=== PATIENT | male | born 1995 | race American Indian/Alaskan Native ===

== ENCOUNTER 2019-11-03 00:17 | Emergency (ER) | payer SELFPAY ==
--- NOTE | 2019-11-03 01:03 | Emergency Department Report ---
ED Eye Problem HPI - General Chief complaint: Eye Problems Stated complaint: EYE INJURY FROM WORK Time Seen by Provider: 11/03/19 00:54 Source: patient Mode of arrival: Wheelchair Limitations: Other - History of Present Illness Initial comments: Patient is a 24-year-old male that presents emergency room with bilateral eye pain. 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 Patient states he was able to drive home and he took an hour nap to see if he will get better and states that it is actually worsening. Patient states he is light sensitive and he is having severe irritation and burning in his eyes. Patient states the pain is a 10 out of 10. Patient states his tetanus is within 5 years. MD chief complaint: eye pain, eye injury, other -: Sudden Onset Description: sudden Location: both eyes Place: work If Injury: UV exposure, other Eye Symptoms: burning, redness, pain, decreased vision, photophobia Severity: severe Severity scale (0 -10): 10 If Pain, Quality: stabbing Consistency: constant Associated Symptoms: none Treatments Prior to Arrival: none - Related Data Patient Tetanus UTD: Yes Allergies Allergy/AdvReac Type Severity Reaction Status Date / Time No Known Allergies Allergy Verified 11/03/19 00:26 ED Review of Systems ROS: Stated complaint: EYE INJURY FROM WORK Other details as noted in HPI Constitutional: denies: chills, fever Eyes: as per HPI, eye pain ENT: denies: ear pain, throat pain Respiratory: denies: cough, shortness of breath, wheezing Cardiovascular: denies: chest pain, palpitations Endocrine: no symptoms reported Gastrointestinal: denies: abdominal pain, nausea, diarrhea Genitourinary: denies: urgency, dysuria Musculoskeletal: denies: back pain, joint swelling, arthralgia Skin: denies: rash, lesions Neurological: denies: headache, weakness, paresthesias Psychiatric: denies: anxiety, depression Hematological/Lymphatic: denies: easy bleeding, easy bruising ED Past Medical Hx - Past Medical History Previous Medical History?: No - Surgical History Past Surgical History?: Yes Additional Surgical History: right lower leg - Family History Family history: no significant - Social History Smoking Status: Never Smoker Substance Use Type: None ED Physical Exam - General Limitations: Other General appearance: alert, in no apparent distress - Head Head exam: Present: atraumatic, normocephalic - Eye Eye exam: Present: conjunctival injection, periorbital swelling, periorbital tenderness - ENT ENT exam: Present: mucous membranes moist - Neck Neck exam: Present: normal inspection - Respiratory Respiratory exam: Present: normal lung sounds bilaterally. Absent: respiratory distress, wheezes, rales - Cardiovascular Cardiovascular Exam: Present: regular rate, normal rhythm. Absent: systolic murmur, diastolic murmur, rubs, gallop - GI/Abdominal GI/Abdominal exam: Present: soft, normal bowel sounds. Absent: distended, tenderness, guarding - Rectal Rectal exam: Present: deferred - Extremities Exam Extremities exam: Present: normal inspection - Back Exam Back exam: Present: normal inspection - Neurological Exam Neurological exam: Present: alert, oriented X3 - Psychiatric Psychiatric exam: Present: normal affect, normal mood - Skin Skin exam: Present: warm, dry, intact, normal color. Absent: rash ED Course Vital Signs 11/03/19 11/03/19 00:22 02:03 Temperature 98.4 F Pulse Rate 59 L 59 L Respiratory 18 15 Rate Blood Pressure 117/71 Blood Pressure 109/78 [left arm] O2 Sat by Pulse 100 100 Oximetry - Reevaluation(s) Reevaluation #1: I discussed plan of care with patient. Patient agrees with plan of care and transfer. Patient will be transferred to [place] via EMS. Patient's labs have been sent. Patient's eyes will be flushed with normal saline 11/03/19 01:15 - Consultations Consultation #1: [place] [facility] paged 11/03/19 01:03 I discussed case with Dr. Franklin at [place] [facility] and Dr. Franklin has accepted the patient to be transferred. 11/03/19 01:14 ED Medical Decision Making - Lab Data Result diagrams: 11/03/19 01:15 11/03/19 01:15 - Medical Decision Making Patient is a 24-year-old male that presents emergency room with complaints of bilateral eye pain. Patient had Riley go towards his eye while his work with electricity today. Patient unable to open his eyes due to pain. Patient states his having photophobia. Patient eyes were flushed which improved his symptoms. Patient was transferred to [facility] since his khalil involve his eyes. Patient was given Ancef prophylactically and patient was up-to-date on his tetanus. Patient had labs done which were unremarkable. Patient transferred to [facility] via EMS. - Differential Diagnosis Eye pain, electrical burn to eyes, burning eyes, eye irritation Critical Care Time: Yes Critical care time in (mins) excluding proc time.: 35 Critical care attestation.: If time is entered above; I have spent that time in minutes in the direct care of this critically ill patient, excluding procedure time. Critical Care Time: 35 minutes ED Disposition Clinical Impression: Burn of eye Qualifiers: Encounter type: initial encounter Laterality: right Qualified Code(s): T26.41XA - Burn of right eye and adnexa, part unspecified, initial encounter Eye pain Qualifiers: Laterality: bilateral Qualified Code(s): H57.13 - Ocular pain, bilateral Disposition: [id number]/TX-[id number] ANOTHER TYPE HLTHCARE Is pt being admited?: No Does the pt Need Aspirin: No Condition: Critical Time of Disposition: 01:16
[2019-11-03] MEDS ORDERED: SODIUM CHLORIDE 0.9% 1000 ML 1,000 ML ONE (01:18)
[2019-11-03 01:35] LABS: Hematocrit 40.7 % (35.5-45.6); Hemoglobin 13.9 gm/dl (11.8-15.2); Mean Corpuscular HGB Conc 34 % (32-34); Mean Corpuscular Volume 81 fl (84-94); Red Cell Distribution Width 13.6 % (13.2-15.2)
[2019-11-03 01:57] LABS: Alanine Aminotransferase 11 units/L (7-56); Albumin 4.6 g/dL (3.9-5); BUN/Creatinine Ratio 18; Blood Urea Nitrogen 16 mg/dL (9-20); Calcium 9.5 mg/dL (8.4-10.2); Hemolysis Index 45
[2019-11-03 01:59] LABS: Platelet Count 127 K/mm3 (140-440)
[2019-11-03 02:03] VITALS: BP 109/78
== END 2019-11-03 03:23 | disposition other institution (70) ==
LOC: ED 00:17
DX: T26.41XA Burn of right eye and adnexa, part unspecified, initial encounter (principal); T26.42XA Burn of left eye and adnexa, part unspecified, initial encounter; H57.13 Ocular pain, bilateral; Z98.890 Other specified postprocedural states; X08.8XXA Exposure to other specified smoke, fire and flames, initial encounter; Y93.89 Activity, other specified; Y92.89 Other specified places as the place of occurrence of the external cause; Y99.0 Civilian activity done for income or pay
CPT/HCPCS: 36415; 80053; 85027; 96365; 99284; J0690; J7030